=== PATIENT | male | born 1970 | race African-American/Black ===

== ENCOUNTER 2018-11-28 10:56 | Emergency (ER) | payer OTHER ==
[~2018-11-28] VITALS: Ht 175.3 cm; Wt 100.0 kg
[2018-11-28 12:51] LABS: BASOPHILS % 0.5 % (0.0-2.0); EOSINOPHILS % 1.3 % (0.0-5.0); HEMATOCRIT. 45.6 % (42.0-52.0); HEMOGLOBIN. 14.7 g/dL (14.0-18.0); MEAN CORPUSCULAR HEMOGLOBIN 27.8 pg (28.0-32.0); MEAN CORPUSCULAR VOLUME 86.4 fL (80.0-94.0); MONOCYTES % 6.6 % (2.0-8.0); NEUTROPHILS % 67.6 % (40.0-76.0); RED BLOOD CELL COUNT 5.28 mill/uL (4.7-6.1); RED CELL DISTRIBUTION WIDTH 14.8 % (11.6-14.6)
[2018-11-28 12:56] LABS: CHLORIDE 105 mEq/L (98-107)
[2018-11-28 12:59] LABS: ETHANOL BLOOD < 10 mg/dL
[2018-11-28 13:25] LABS: PLATELET 262 x1000/uL (130-400)
[2018-11-28 17:06] VITALS: BP 122/80
== END 2018-11-28 17:08 | disposition home or self-care (01) ==
LOC: ER 10:56
DX: S06.0X9A Concussion with loss of consciousness of unspecified duration, initial encounter (principal); V47.5XXA Car driver injured in collision with fixed or stationary object in traffic accident, initial encounter; Y93.89 Activity, other specified; Y92.410 Unspecified street and highway as the place of occurrence of the external cause
CPT/HCPCS: 36415; 71045; 83880; 84484; 93005; 99284